=== PATIENT | female | born 1980 | race Caucasian/White ===

== ENCOUNTER 2016-08-10 08:53 | Emergency (ER) | payer OTHER ==
[~2016-08-10] VITALS: Ht 180.3 cm; Wt 80.5 kg
[~2016-08-10 08:53] MED LIST: NAPROSYN500 MG PO; NOHOMEMEDS; PEN-VEE K,VEET500 MG PO; PERCOCET 5/31 TABLET PO; TYLENOL WITH C1 EACH PO; ZOFRAN4 MG PO
[2016-08-10 09:22] LABS: EOSINOPHIL (%) 0.2 % (0-5); HEMATOCRIT 47.8 % (36.0-46.0); IMMATURE GRANULOCYTE (%) 0.6 % (0.0-0.7); IMMATURE GRANULOCYTE COUNT 0.8 K/uL; LYMPHOCYTE COUNT 1.1 K/uL (1.0-2.8); MCH 34.3 PG (29.0-34.0); MCHC 34.9 G/DL (30.0-36.0); MCV 98.2 FL (83-99); MEAN PLAT.VOLUME 9.4 uM^3 (9.5-12.4); MONOCYTE (%) 4.8 % (3-12); MONOCYTE COUNT 0.6 K/uL (0-0.8); NEUTROPHIL (%) 85.8 % (45-76); PLATELET COUNT 409 K/uL (156-360); RED BLOOD COUNT 4.87 M/uL (3.80-5.20); WHITE BLOOD COUNT 12.9 K/uL (4.1-10.2)
[2016-08-10 09:33] LABS: CHLORIDE 105 mEq/L (99-109); POTASSIUM 3.7 mEq/L (3.7-5.4); SODIUM 141 mEq/L (136-147)
[2016-08-10 09:35] LABS: GLUCOSE 111 mg/dL (70-99)
[2016-08-10 09:36] LABS: ANION GAP 11 MEQ/L (2-14)
[2016-08-10 09:37] LABS: TOTAL BILIRUBIN 0.3 mg/dL (0.0-1.0)
[2016-08-10 09:38] LABS: ALKALINE PHOSPHATASE 88 IU/L (3-129)
[2016-08-10 09:39] LABS: GFR ESTIMATE (CALCULATED) > 59 mL/min/
[2016-08-10 09:40] LABS: UREA NITROGEN (BUN) 9 mg/dL (9-23)
[2016-08-10 09:42] LABS: LIPASE 42 U/L (1.0-51.0)
[2016-08-10 09:48] LABS: QUANTITATIVE HCG < 4.0 MIU/ML
[2016-08-10 10:35] LABS: INFLUENZA A VIRAL ANTIGEN NEGATIVE; INFLUENZA B VIRAL ANTIGEN NEGATIVE
[2016-08-10] MEDS ORDERED: TOBREX5 ML LEFT EYE (12:18)
[2016-08-10] MEDS ORDERED: BENTYL20 MG PO (12:18)
[2016-08-10] MEDS ORDERED: ZOFRAN ODT4 MG PO (12:18)
[2016-08-10 12:31] VITALS: BP 128/79
== END 2016-08-10 12:39 | disposition home or self-care (01) ==
LOC: EME 08:53 → EXP 08:53
PROVIDERS: Emergency Medicine; Physician Assistant
DX: R10.84 Generalized abdominal pain (principal); H10.9 Unspecified conjunctivitis; F17.200 Nicotine dependence, unspecified, uncomplicated
CPT/HCPCS: 74022; 80053; 81003; 83690; 84702; 85025; 87502; 99281; 99285; J1885; J2765; J7120

== ENCOUNTER 2017-12-20 21:46 | Emergency (ER) | payer OTHER ==
[~2017-12-20] VITALS: Ht 180.3 cm; Wt 72.1 kg
[~2017-12-20 21:46] MED LIST changes: +BENTYL20 MG PO; +TOBREX5 ML LEFT EYE; +ZOFRAN ODT4 MG PO
[2017-12-20 21:49] VITALS: BP 113/71
[2017-12-20 22:15] LABS: HEMATOCRIT 40.9 % (36.0-46.0); MCH 33.5 PG (29.0-34.0); MCHC 34.2 G/DL (30.0-36.0); MCV 97.8 FL (83-99); PLATELET COUNT 309 K/uL (156-360); RBC DIS.WIDTH-CV 12.7 % (11.8-14.6); RBC DIS.WIDTH-SD 45.5 % (39-53); RED BLOOD COUNT 4.18 M/uL (3.80-5.20); WHITE BLOOD COUNT 12.7 K/uL (4.1-10.2)
[2017-12-22] MEDS ORDERED: NEURONTIN600 MG PO (18:59)
[2017-12-22] MEDS ORDERED: NEOSPORIN + P28.3 GM TP (18:59)
== END 2017-12-21 00:11 | disposition left against medical advice (07) ==
LOC: EME 21:46
DX: R22.0 Localized swelling, mass and lump, head (principal); H57.8 Other specified disorders of eye and adnexa; L02.429 Furuncle of limb, unspecified; M79.89 Other specified soft tissue disorders; Z53.21 Procedure and treatment not carried out due to patient leaving prior to being seen by health care provider
CPT/HCPCS: 80053; 83605; 84702; 85027; 87040

== ENCOUNTER 2017-12-21 04:09 | Emergency (ER) | payer OTHER ==
[~2017-12-21] VITALS: Ht 180.3 cm; Wt 69.4 kg
[2017-12-21 04:11] VITALS: BP 135/85
[2017-12-22] MEDS ORDERED: NEURONTIN600 MG PO (18:59)
[2017-12-22] MEDS ORDERED: NEOSPORIN + P28.3 GM TP (18:59)
== END 2017-12-21 05:24 | disposition left against medical advice (07) ==
LOC: EME 04:09
DX: R22.0 Localized swelling, mass and lump, head (principal); H57.8 Other specified disorders of eye and adnexa; Z53.21 Procedure and treatment not carried out due to patient leaving prior to being seen by health care provider

== ENCOUNTER 2017-12-22 13:21 | Inpatient (IN) | payer OTHER ==
[~2017-12-22] VITALS: Ht 180.3 cm; Wt 73.0 kg
[2017-12-22 15:44] LABS: HEMOGLOBIN 13.7 G/DL (11.9-15.5); MCH 33.5 PG (29.0-34.0); MCHC 34.3 G/DL (30.0-36.0); MCV 97.8 FL (83-99); PLATELET COUNT 312 K/uL (156-360); RBC DIS.WIDTH-CV 12.6 % (11.8-14.6); RED BLOOD COUNT 4.09 M/uL (3.80-5.20); WHITE BLOOD COUNT 6.4 K/uL (4.1-10.2)
[2017-12-22 15:55] LABS: CHLORIDE 106 mEq/L (99-109); POTASSIUM 3.5 mEq/L (3.7-5.4); SODIUM 144 mEq/L (136-147)
[2017-12-22 15:57] LABS: GLUCOSE 101 mg/dL (70-99)
[2017-12-22 16:01] LABS: CREATININE 0.8 mg/dL (0.6-1.3); GFR ESTIMATE (CALCULATED) > 59 mL/min/
[2017-12-22 16:02] LABS: UREA NITROGEN (BUN) 10 mg/dL (9-23)
[2017-12-22 16:29] LABS: ALBUMIN 3.9 g/dL (3.2-4.8)
[2017-12-22 16:33] LABS: TOTAL BILIRUBIN 0.4 mg/dL (0.0-1.0)
[2017-12-22 16:34] LABS: ALKALINE PHOSPHATASE 65 IU/L (3-129)
[2017-12-22 16:37] LABS: AST (GOT) 11 IU/L (2-34); DIRECT BILIRUBIN 0.2 mg/dL (0.0-0.3)
[2017-12-22 16:38] LABS: ALT (GPT) 10 IU/L (3-49)
[2017-12-22] MEDS ORDERED: NEOSPORIN + P28.3 GM TP (18:59)
[2017-12-22] MEDS ORDERED: NEURONTIN600 MG PO (18:59)
[2017-12-22 20:49] VITALS: BP 109/65
[2017-12-22 23:52] VITALS: BP 104/56
[2017-12-23 04:02] VITALS: BP 138/54
[2017-12-23 06:34] LABS: MCH 32.7 PG (29.0-34.0); MCHC 33.5 G/DL (30.0-36.0); MCV 97.4 FL (83-99); PLATELET COUNT 282 K/uL (156-360); RBC DIS.WIDTH-CV 12.8 % (11.8-14.6); RBC DIS.WIDTH-SD 45.6 % (39-53); RED BLOOD COUNT 3.49 M/uL (3.80-5.20); WHITE BLOOD COUNT 5.3 K/uL (4.1-10.2)
[2017-12-23 06:42] LABS: HEMOGLOBIN 11.4 G/DL (11.9-15.5)
[2017-12-23 06:46] LABS: ALBUMIN 3.3 G/DL (3.2-4.8); ALKALINE PHOSPHATASE 48 IU/L (3-129); ALT (GPT) 17 IU/L (3-49); AST (GOT) 18 IU/L (2-34); CHLORIDE 109 MEQ/L (99-109); CREATININE 0.6 MG/DL (0.6-1.3); GFR ESTIMATE (CALCULATED) > 59 mL/min/; GLUCOSE 102 mg/dL (70-99); POTASSIUM 4.2 MEQ/L (3.7-5.4); SODIUM 141 MEQ/L (136-147); TOTAL BILIRUBIN 0.2 MG/DL (0.0-1.0); TOTAL PROTEIN 5.3 G/DL (6.4-8.3); UREA NITROGEN (BUN) 8 mg/dL (9-23)
[2017-12-23 07:35] VITALS: BP 89/55
[2017-12-23 11:00] LABS: HEPATITIS B SURFACE ANTIGEN Nonreactive; HEPATITIS C ANTIBODY Nonreactive
[2017-12-23 11:01] LABS: HIV-1/2 AB/AG COMBO Nonreactive
[2017-12-23 11:04] LABS: HEPATITIS B SURFACE ANTIBODY REACTIVE
[2017-12-23 11:14] VITALS: BP 101/59
[2017-12-23 15:10] VITALS: BP 129/75
[2017-12-23 20:07] VITALS: BP 107/69
[2017-12-23 23:53] VITALS: BP 102/66
[2017-12-24 07:54] VITALS: BP 102/59
[2017-12-24 07:54] LABS: HEMATOCRIT 35.5 % (36.0-46.0); HEMOGLOBIN 11.8 G/DL (11.9-15.5); MCH 32.3 PG (29.0-34.0); MCHC 33.2 G/DL (30.0-36.0); MCV 97.3 FL (83-99); PLATELET COUNT 294 K/uL (156-360); RBC DIS.WIDTH-CV 12.5 % (11.8-14.6); RBC DIS.WIDTH-SD 45.1 % (39-53); RED BLOOD COUNT 3.65 M/uL (3.80-5.20); WHITE BLOOD COUNT 5.7 K/uL (4.1-10.2)
[2017-12-24 08:18] LABS: CHLORIDE 108 MEQ/L (99-109); CREATININE 0.6 MG/DL (0.6-1.3); GFR ESTIMATE (CALCULATED) > 59 mL/min/; GLUCOSE 99 mg/dL (70-99); POTASSIUM 3.7 MEQ/L (3.7-5.4); SODIUM 141 MEQ/L (136-147); UREA NITROGEN (BUN) 6 mg/dL (9-23)
[2017-12-24] MEDS ORDERED: HIBICLENS118 ML TP (10:32)
[2017-12-24] MEDS ORDERED: BACTRIM,SEPT1 TABLET PO (10:32)
== END 2017-12-24 12:00 | disposition home or self-care (01) | DRG 603 ==
LOC: EME 13:21 → 2EAST 19:40 → EDOF 19:40 → ENRESERV 19:43 → 2EAST 20:51
PROVIDERS: Hospitalist; Internal Medicine; Physician Assistant Medical; Surgery
PROC: 0H91XZZ Drainage of Face Skin, External Approach (ICD-10-PCS; principal; 2017-12-22)
DX: L02.01 Cutaneous abscess of face (principal); B95.62 Methicillin resistant Staphylococcus aureus infection as the cause of diseases classified elsewhere; F11.23 Opioid dependence with withdrawal; E86.0 Dehydration; L73.9 Follicular disorder, unspecified; G89.29 Other chronic pain; K29.70 Gastritis, unspecified, without bleeding; F14.90 Cocaine use, unspecified, uncomplicated; F17.210 Nicotine dependence, cigarettes, uncomplicated; Z86.14 Personal history of Methicillin resistant Staphylococcus aureus infection; Z88.0 Allergy status to penicillin
CPT/HCPCS: 70481; 80048; 80053; 80076; 80202; 83605; 85027; 85651; 86060 90; 86664; 86665; 86706; 86803; 87040; 87070; 87075; 87077; 87147; 87186; 87205; 87340; 87389; 99281; 99285; J0572; J0696; J1650; J3370; J7030